=== PATIENT | female | born 1955 | race Caucasian/White ===

== ENCOUNTER 2019-12-08 16:52 | Outpatient (CLI) | payer OTHER, SELFPAY ==
--- NOTE | ~2019-12-08 | XR_ITS ---
XR foot RT 2V 12/08/2019 17:26 Indication: Right foot pain Procedure: 2 views right foot Comparison: 06/29/2013 Findings: There is mild osteoarthritis of the first MTP joint. Lisfranc joint intact. Small degenerat anju calcaneal enthesophyte. There are degenerative changes of the midfoot. Osteopenia. No erosive emilia nges are identified. 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 Reviewed, dictated and finalized at location A. 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
[2019-12-08 17:17] LABS: Basophils Absolute Auto 0.1 K/mm3 (0.0-0.1); Basophils Percent Auto 1.1 % (0.2-1.2); Eosinophils Absolute Auto 0.2 K/mm3 (0-0.3); Eosinophils Percent Auto 2.6 % (0-4.4); Hematocrit 43.2 % (37.0-47.0); Hemoglobin 13.9 g/dL (12.0-15.0); Immature Granulocyte Absolute 0.02 K/mm3 (0.00-0.031); Immature Granulocyte Percent A 0.3 % (0-0.5); Lymphocytes Absolute Auto 1.68 K/mm3 (0.9-3.2); Lymphocytes Percent Auto 25.5 % (18.3-44.2); Mean Corpuscular HGB Conc 32.2 g/dl (32-36); Mean Corpuscular Hemoglobin 27.7 pg (26-34); Mean Corpuscular Volume 86.2 fl (80-100); Mean Platelet Volume 10.6 fl (7.4-10.4); Monocytes Absolute Auto 0.4 K/mm3 (0.1-0.6); Monocytes Percent Auto 6.7 % (2.6-8.5); Neutrophils Absolute Auto 4.2 K/mm3 (1.3-6.7); Neutrophils Percent Auto 63.8 % (45.5-73.1); Platelet Count Result 236 k/mm3 (150-375); Red Blood Count 5.01 M/mm3 (4.2-5.4); Red Cell Distribution Width 13.7 % (11.5-14.5); White Blood Count 6.6 K/mm3 (4.5-10.0)
[2019-12-08 17:29] LABS: Alanine Aminotransferase 6 U/L (4-35); Albumin Level 4.6 g/dL (3.5-5.1); Alkaline Phosphatase 88 U/L (38-126); Aspartate Amino Transferase 23 U/L (14-36); Bilirubin,Total 0.5 mg/dL (0.2-1.3); Blood Urea Nitrogen 18 mg/dL (7-17); Calcium 9.6 mg/dL (8.4-10.2); Carbon Dioxide 27 mmol/L (22-30); Chloride 104 mmol/L (98-107); Cholesterol 236 mg/dL (0-200); Estimated Glomerular Filt Rate > 60; Glucose 91 mg/dL (65-105); HDL Direct 62 mg/dL; Potassium 4.6 mmol/L (3.4-5.0); Sodium 138 mmol/L (137-145); Triglycerides 265 mg/dL (<150)
[2019-12-08 17:40] LABS: LDL Cholesterol Direct 136 mg/dL
[2019-12-08 18:09] LABS: Free T4 Free Thyroxine 1.44 ng/mL (0.78-2.19)
== END 2019-12-08 16:53 | disposition home or self-care (01) ==
PROVIDERS: PCP Family Medicine; Visit Provider Nurse Practitioner Family
DX: E78.5 Hyperlipidemia, unspecified (principal); I10 Essential (primary) hypertension; E03.9 Hypothyroidism, unspecified; M19.071 Primary osteoarthritis, right ankle and foot
CPT/HCPCS: 36415; 73620; 80053; 80061; 84439; 84443; 85025

== ENCOUNTER 2020-01-04 14:54 | Outpatient (CLI) | payer OTHER, SELFPAY ==
--- NOTE | ~2020-01-04 | MM_ITS ---
EXAMINATION: MM screening mammo BI HISTORY: Screening TECHNIQUE: Craniocaudal and mediolateral oblique 3-D tomosynthesis images were obtained and synthetic 2-D images were generated. CAD analysis was submitted and interpreted. COMPARISON: 02/16/2014 BREAST PARENCHYMAL COMPOSITION: There are scattered areas of fibroglandular density. FINDINGS: There is no evidence of suspicious mass, calcification, or architectural distortion to sugg est malignancy in either breast. There has been no suspicious interval change. IMPRESSION: 1. No mammographic evidence of malignancy. 2. Recommend routine screening mammography in one year. BI-RADS Category 1: Negative Reviewed, dictated and finalized at location A.
--- NOTE | ~2020-01-04 | DEXA_ITS ---
Bone Density Report Name: Yamileth Brunner Age: 64 Sex: Female Ethnicity: White Date of : 1955 Indication: postmenopausal; prior fracture; Referring Provider: Elis Roldan Study: Bone densitometry was performed. Exam Date: January 04, 2020 Accession number: [id number] Bone Density: Region BMD T-score Z-score Classification AP Spine (L1, L2) 1.030 0.5 2.0 Normal Femoral Neck (Left) 0.817 -0.3 1.1 Normal Total Hip (Left) 1.037 0.8 1.9 Normal Total Hip Bilateral Avg 1.008 0.6 1.7 Normal Femoral Neck (Right) 0.744 -1.0 0.5 Normal Total Hip (Right) 0.978 0.3 1.4 Normal World Health Organization criteria for BMD impression classify patients as: Normal (T-score at or above -1.0), Osteopenia (T-score between -1.0 and -2.5), or Osteoporosis (T-score at or below -2.5). 10-year Fracture Risk: FRAX not reported because: All T-scores for Spine Total, Hip Total, Femoral Neck at or above -1.0 Clinical Information Provided by Patient: Has had a low trauma fracture Patient maximum height was 65 Menopause Age: 53 Drinks caffeinated beverages Onset of menses at age 14 Number of children 2 Impression: The patient has normal bone mass. The patient has risk factors, including: previous fracture. Discussion: BONE DENSITY IS ABOVE THE MINIMUM DESIRABLE LEVEL AT ALL SKELETAL SITES TESTED. This patient?s bone mineral density is above the minimum desirable level (T-score -1.0 or better) at all sites measured. The patient should follow a healthful lifestyle (good nutrition with adequate calcium and vitamin D, and appropriate weight-bearing exercise). Follow-Up: Consider repeating this study in 5 years or sooner if there is some new clinical indication. Reported by: WILTON on 01/04/2020 3:31:00 PM. Reviewed, dictated and finalized at location ASujata WHEELER
== END 2020-01-04 14:55 | disposition home or self-care (01) ==
LOC: ANHIMG 14:55
PROVIDERS: PCP Family Medicine; Visit Provider Nurse Practitioner Family
DX: Z12.31 Encounter for screening mammogram for malignant neoplasm of breast (principal); Z13.820 Encounter for screening for osteoporosis
CPT/HCPCS: 77067; 77080

== ENCOUNTER 2021-11-22 09:47 | Outpatient (CLI) | payer OTHER, SELFPAY ==
[2021-11-22 11:53] LABS: Hematocrit 44.4 % (37.0-47.0); Hemoglobin 14.2 g/dL (12.0-15.0); Mean Corpuscular Hemoglobin 27.4 pg (26-34); Mean Corpuscular Volume 85.5 fl (80-100); Platelet Count Result 228 k/mm3 (150-375); Red Blood Count 5.19 M/mm3 (4.2-5.4); Red Cell Distribution Width 13.1 % (11.5-14.5); White Blood Count 6.4 K/mm3 (4.5-10.0)
[2021-11-22 12:07] LABS: Albumin Level 4.4 g/dL (3.5-5.1); Alkaline Phosphatase 94 U/L (38-126); Anion Gap 7 mmol/L (8-16); Aspartate Amino Transferase 18 U/L (14-36); Bilirubin,Total 0.4 mg/dL (0.2-1.3); Blood Urea Nitrogen 16 mg/dL (7-17); Calcium 8.9 mg/dL (8.4-10.2); Carbon Dioxide 26 mmol/L (22-30); Chloride 107 mmol/L (98-107); Cholesterol 235 mg/dL (0-200); Estimated Glomerular Filt Rate 56; Glucose 94 mg/dL (65-110); HDL Direct 56 mg/dL; Potassium 4.1 mmol/L (3.4-5.0); Sodium 140 mmol/L (137-145); Triglycerides 196 mg/dL (<150)
[2021-11-22 12:19] LABS: LDL Cholesterol Direct 131 mg/dL
[2021-11-22 22:22] LABS: Alanine Aminotransferase 6 U/L (6-35)
== END 2021-11-22 09:48 | disposition home or self-care (01) ==
PROVIDERS: PCP Family Medicine; Visit Provider Nurse Practitioner Family
DX: M79.671 Pain in right foot (principal); E78.5 Hyperlipidemia, unspecified; E03.9 Hypothyroidism, unspecified
CPT/HCPCS: 36415; 80053; 80061; 84436; 84443; 85027

== ENCOUNTER 2022-03-05 11:57 | Outpatient (CLI) | payer MEDICARE, OTHER, SELFPAY ==
--- NOTE | ~2022-03-05 | MM_ITS ---
EXAMINATION: MM screening [facility] BI w [facility] HISTORY: Screening mammogram TECHNIQUE: Craniocaudal and mediolateral oblique 3-D tomosynthesis images were obtained and synthetic 2-D images were generated. CAD analysis was submitted and interpreted. COMPARISON: 01/04/2020, 02/16/2014, 01/01/2012 BREAST PARENCHYMAL COMPOSITION: There are scattered areas of fibroglandular density. FINDINGS: RIGHT BREAST: There is a possible solitary dilated duct in the upper outer quadrant of the breast. LEFT BREAST: No suspicious mass, calcification, or architectural distortion are identified to suggest malignancy. There has been no suspicious interval change. IMPRESSION: 1. Possible solitary dilated duct of the right breast. 2. Additional mammographic views and possible breast ultrasound are recommended. BI-RADS Category 0: Incomplete: Needs additional imaging evaluation. Reviewed, dictated and finalized at location A. IMPRESSION: 1. Possible solitary dilated duct of the right breast. 2. Additional mammographic views and possible breast ultrasound are recommended . BI-RADS Category 0: Incomplete: Needs additional imaging evaluation.
== END 2022-03-05 11:58 | disposition home or self-care (01) ==
PROVIDERS: PCP Family Medicine; Visit Provider Nurse Practitioner Family
DX: Z12.31 Encounter for screening mammogram for malignant neoplasm of breast (principal); R92.8 Other abnormal and inconclusive findings on diagnostic imaging of breast
CPT/HCPCS: 77063; 77067

== ENCOUNTER 2022-03-17 11:18 | Outpatient (CLI) | payer MEDICARE, OTHER, SELFPAY ==
--- NOTE | ~2022-03-17 | MM_ITS ---
EXAMINATION: MM diagnostic iván RT w [facility] HISTORY: Possible dilated right breast duct. TECHNIQUE: Additional 3-D tomosynthesis images of the right breast were performed and synthetic 2-D i mages were generated. CAD analysis was submitted and interpreted. COMPARISON: Comparison to multiple prior studies sequentially, with oldest reviewed study dated 02/16. BREAST PARENCHYMAL COMPOSITION: Breast composed of scattered areas of fibroglandular density FINDINGS: There are no suspicious masses, calcifications or architectural distortion in the right patricia ast to suggest malignancy. Interval resolution of tubular structure in the upper outer quadrant seen on recent screening mammogram. IMPRESSION: 1. No evidence for malignancy in the right breast. 2. Routine yearly screening mammogram and regular clinical breast examination are recommended. BI-RADS Category 1: Negative Reviewed, dictated and finalized at location A. IMPRESSION: 1. No evidence for malignancy in the right breast. 2. Routine yearly screening mammogram and regular clinical breast examination a re recommended. BI-RADS Category 1: Negative
== END 2022-03-17 11:19 | disposition home or self-care (01) ==
LOC: ANHIMG 11:19
PROVIDERS: PCP Family Medicine; Visit Provider Nurse Practitioner Family
DX: R92.8 Other abnormal and inconclusive findings on diagnostic imaging of breast (principal)
CPT/HCPCS: 77061; 77065; G0279

== ENCOUNTER 2023-02-10 09:36 | Outpatient (CLI) | payer MEDICARE, OTHER, SELFPAY ==
[2023-02-10 10:20] LABS: Hematocrit 44.8 % (37.0-47.0); Hemoglobin 14.3 g/dL (12.0-15.0); Mean Corpuscular HGB Conc 31.9 g/dl (32-36); Mean Corpuscular Volume 87.7 fl (80-100); Mean Platelet Volume 10.5 fl (7.4-10.4); Platelet Count Result 206 k/mm3 (150-375); Red Blood Count 5.11 M/mm3 (4.2-5.4); Red Cell Distribution Width 13.1 % (11.5-14.5); White Blood Count 5.7 K/mm3 (4.5-10.0)
[2023-02-10 10:31] LABS: Alanine Aminotransferase 8 U/L (6-35); Albumin Level 4.4 g/dL (3.5-5.1); Alkaline Phosphatase 81 U/L (38-126); Anion Gap 7 mmol/L (8-16); Aspartate Amino Transferase 24 U/L (14-36); Bilirubin,Total 0.8 mg/dL (0.2-1.3); Blood Urea Nitrogen 15 mg/dL (7-17); Calcium 9.1 mg/dL (8.4-10.2); Carbon Dioxide 27 mmol/L (22-30); Chloride 105 mmol/L (98-107); Cholesterol 231 mg/dL (0-200); Estimated Glomerular Filt Rate > 60; Glucose 101 mg/dL (65-110); HDL Direct 53 mg/dL; Potassium 4.5 mmol/L (3.4-5.0); Sodium 139 mmol/L (137-145); Triglycerides 212 mg/dL (<150)
[2023-02-10 10:44] LABS: LDL Cholesterol Direct 137 mg/dL
[2023-02-10 11:03] LABS: Thyroid Stimulating Hormone 0.388 uIU/mL (0.465-4.680)
[2023-02-10 11:24] LABS: Vitamin D 25 Hydroxy 30.2 ng/mL
== END 2023-02-10 09:37 | disposition home or self-care (01) ==
PROVIDERS: PCP Family Medicine; Visit Provider Nurse Practitioner Family
DX: M79.671 Pain in right foot (principal); I10 Essential (primary) hypertension; E78.5 Hyperlipidemia, unspecified; E03.9 Hypothyroidism, unspecified; E55.9 Vitamin D deficiency, unspecified
CPT/HCPCS: 36415; 80053; 80061; 82306; 84436; 84443; 85027

== ENCOUNTER 2023-02-12 12:48 | Outpatient (CLI) | payer MEDICARE, OTHER, SELFPAY ==
--- NOTE | 2023-02-12 13:42 | ECG_ITS ---
Measurements Intervals [place] Rate: 69 P: 130 IN: 107 QRS: 4 QRSD: 78 T: 51 QT: 332 QTc: 357 Interpretive Statements SINUS RHYTHM WITH SHORT IN INTERVAL FREQUENT ATRIAL PREMATURE COMPLEXES LOW QRS VOLTAGE IN PRECORDIAL LEADS BORDERLINE ST-T WAVE ABNORMALITY- DIFFUSE LEADS BASELINE ARTIFACT- I, II, AVR, AVL, AVF ABNORMAL ECG NO PREVIOUS ECG AVAILABLE FOR COMPARISON Electronically Signed On 02-12-2023 13:52:55 CDT by Tad Craven D.O.
== END 2023-02-12 12:49 | disposition home or self-care (01) ==
PROVIDERS: PCP Family Medicine; Visit Provider Nurse Practitioner Family
DX: R07.89 Other chest pain (principal); I47.1 Supraventricular tachycardia; R94.31 Abnormal electrocardiogram [ECG] [EKG]
CPT/HCPCS: 93005

== ENCOUNTER 2023-02-18 10:44 | Outpatient (CLI) | payer MEDICARE, OTHER, SELFPAY ==
--- NOTE | 2023-02-19 14:30 | WPDHOLTEREM ---
Holter/Event Monitor Holter/Event Monitor Date of procedure: 02/18/23 Holter/Event Procedure: 24 Hr Holter Monitor Indications: SVT Conclusion: 1. 24 hour holter monitor on 02/18/23. 2. Predominant rhythm is sinus rhythm. HR range 46-115 bpm; average HR 70 bpm. HR at 46 bpm is at 09:44. 3. There are 1,675 premature supraventricular complexes, 23 supraventricular couplets, 16 supraventricular bigeminy, 93 supraventricular trigeminy. There are 2 episodes of atrial tachycardia, fastest at 126 bpm and longest lasting 5 beats. 4. There are 67 premature ventricular complexes. No ventricular tachycardia. 5. No sinoatrial or atrioventricular blocks. No significant pauses greater than 2 seconds. 6. Patient reports symptoms of shortness of breath, lightheadedness, chest pressure which demonstrate sinus rhythm, HR range 63-109 bpm with 3 episodes with PAC's.
== END 2023-02-18 10:45 | disposition home or self-care (01) ==
LOC: ANHCARD 10:45
PROVIDERS: PCP Family Medicine; Visit Provider Nurse Practitioner Family
DX: I47.1 Supraventricular tachycardia (principal); R07.89 Other chest pain; R94.31 Abnormal electrocardiogram [ECG] [EKG]
CPT/HCPCS: 93225; 93226

== ENCOUNTER 2023-03-31 08:34 | Outpatient (CLI) | payer MEDICARE, OTHER, SELFPAY ==
--- NOTE | 2023-03-31 | EST_ITS ---
Patient Info Name: Yamileth Brunner Age: 67 years : 1955 Gender: Female Ht: 65 in Wt: 237 lbs BSA: 2.27 m2 Exam Date: 03/31/2023 9:35 AM Exam Location: [facility] Stress Patient Status: Outpatient Admit Date: 03/31/2023 Staff Ordering Physician: Geovanna Chaudhari MD Attending Provider: Geovanna Chaudhari MD Exercise Technologist: Georgia Thompson, CT Nurse: Sheela Kimble APN Exam Type: CA stress leslie w NM Study Info Indications R07.9 - Chest pain, unspecified A nuclear stress test was performed. Summary 1. Target heart rate was not achieved during exercise stress test. 2. Exercise capacity fair to good at 6-10 METS. 3. Hypertensive blood pressure response to exercise. 4. The stress ECG is non-diagnostic due to significant baseline artifact during exercise that limits interpretation for STTW changes. 5. Occasional PVCs. 6. Please correlate with nuclear medicine images, reported separately. 7. Stress test supervised by Sheela Kimble NP. Stress test interpreted by Caitlyn Millan MD. Protocol: [facility] Stress ECG Details Stage: REST Duration (min): 4 min : 41 sec Speed (mph): 0.0 Grade (%): 0 HR (bpm): 78 SBP (mmHg): 160 DBP (mmHg): 96 METS: --- Stage: REST Duration (min): 15 min : 1 sec Speed (mph): 0.0 Grade (%): 0 HR (bpm): 89 SBP (mmHg): 160 DBP (mmHg): 96 METS: --- Stage: STAGE 1 Duration (min): 1 min : 0 sec Speed (mph): 1.7 Grade (%): 10 HR (bpm): 96 SBP (mmHg): 160 DBP (mmHg): 96 METS: --- Stage: STAGE 1 Duration (min): 2 min : 0 sec Speed (mph): 1.7 Grade (%): 10 HR (bpm): 104 SBP (mmHg): 160 DBP (mmHg): 96 METS: --- Stage: STAGE 1 Duration (min): 3 min : 0 sec Speed (mph): 1.7 Grade (%): 10 HR (bpm): 111 SBP (mmHg): 210 DBP (mmHg): 94 METS: --- Stage: STAGE 2 Duration (min): 1 min : 0 sec Speed (mph): 2.5 Grade (%): 12 HR (bpm): 75 SBP (mmHg): 210 DBP (mmHg): 94 METS: --- Stage: STAGE 2 Duration (min): 1 min : 10 sec Speed (mph): 2.5 Grade (%): 12 HR (bpm): 82 SBP (mmHg): 210 DBP (mmHg): 94 METS: --- Stage: RECOVERY Duration (min): 0 min : 49 sec Speed (mph): 0.0 Grade (%): 0 HR (bpm): 118 SBP (mmHg): 210 DBP (mmHg): 94 METS: --- Stage: RECOVERY Duration (min): 1 min : 49 sec Speed (mph): 0.0 Grade (%): 0 HR (bpm): 104 SBP (mmHg): 156 DBP (mmHg): 83 METS: --- Stage: RECOVERY Duration (min): 2 min : 49 sec Speed (mph): 0.0 Grade (%): 0 HR (bpm): 95 SBP (mmHg): 156 DBP (mmHg): 83 METS: --- Stage: RECOVERY Duration (min): 3 min : 49 sec Speed (mph): 0.0 Grade (%): 0 HR (bpm): 93 SBP (mmHg): 170 DBP (mmHg): 94 METS: --- Stage: RECOVERY Duration (min): 4 min : 5 sec Speed (mph): 0.0 Grade (%): 0 HR (bpm): 93 SBP (mmHg): 170 DBP (mmHg): 94 METS: --- Rest HR: 89 bpm Peak HR: 119 bpm Rest Sys BP: 160 mmHg Peak Sys BP: 210 mmHg Max Pred HR: 154 bpm % Max Pred HR
--- NOTE | ~2023-03-31 | NM_ITS ---
EXAMINATION: NM stress w perf spect multi DATE: 03/31/2023 11:04 INDICATION: Other chest pain. TECHNIQUE: Rest images were obtained following intravenous administration of 9.2 mCi Tc99m tetrofosmi n (NexPlanar). The patient performed an exercise activity. At peak exercise, 28.6 mCi Tc99m tetrofosmin (Myoview) was administered intravenously, and stress images were obtained. Data was reconstructed in to short axis and horizontal and vertical long axis SPECT images. Gated SPECT images were also obtain ed. COMPARISON: None. FINDINGS: There is no definite reversible or fixed perfusion abnormality to suggest ischemia or infar ction. There is no segmental wall motion abnormality. Left ventricular ejection fraction measures > 70%. IMPRESSION: 1. No definite ischemia or infarct. 2. Normal left ventricular ejection fraction measuring >70%. Reviewed, dictated and finalized at location E.
== END 2023-03-31 08:35 | disposition home or self-care (01) ==
PROVIDERS: PCP Family Medicine; Visit Provider Internal Medicine Cardiovascular Disease
DX: R07.89 Other chest pain (principal); R94.39 Abnormal result of other cardiovascular function study
CPT/HCPCS: 78452; 93017; A9502

== ENCOUNTER 2023-06-12 08:35 | Outpatient (CLI) | payer MEDICARE, OTHER, SELFPAY ==
--- NOTE | ~2023-06-12 | MM_ITS ---
EXAMINATION: MM screening [facility] BI w [facility] HISTORY: Screening mammogram TECHNIQUE: Craniocaudal and mediolateral oblique 3-D tomosynthesis images were obtained and synthetic 2-D images were generated. CAD analysis was submitted and interpreted. COMPARISON: 03/17/2022, 03/05/2022, 01/24/2020 BREAST PARENCHYMAL COMPOSITION: There are scattered areas of fibroglandular density. FINDINGS: No suspicious mass, calcification, or architectural distortion are identified in either patricia ast to suggest malignancy. There has been no suspicious interval change. IMPRESSION: 1. No mammographic evidence of malignancy. 2. Recommend routine screening mammography in one year. BI-RADS Category 1: Negative Reviewed, dictated and finalized at location A. MOVER
== END 2023-06-12 08:36 | disposition home or self-care (01) ==
LOC: ANHIMG 08:39
PROVIDERS: PCP Family Medicine; Visit Provider Family Medicine
DX: Z12.31 Encounter for screening mammogram for malignant neoplasm of breast (principal)
CPT/HCPCS: 77063; 77067

== ENCOUNTER 2024-05-06 09:58 | Outpatient (CLI) | payer MEDICARE, OTHER, SELFPAY ==
[2024-05-06 11:01] LABS: Basophils Absolute Auto 0.1 K/mm3 (0.0-0.1); Basophils Percent Auto 1.1 % (0.2-1.2); Eosinophils Absolute Auto 0.1 K/mm3 (0-0.3); Eosinophils Percent Auto 2.8 % (0-4.4); Hemoglobin 14.1 g/dL (12.0-15.0); Immature Granulocyte Absolute 0.03 K/mm3 (0.00-0.031); Immature Granulocyte Percent A 0.6 % (0-0.5); Lymphocytes Absolute Auto 1.42 K/mm3 (0.9-3.2); Lymphocytes Percent Auto 30.6 % (18.3-44.2); Mean Corpuscular HGB Conc 32.8 g/dl (32-36); Mean Corpuscular Hemoglobin 28.7 pg (26-34); Mean Corpuscular Volume 87.4 fl (80-100); Mean Platelet Volume 10.4 fl (7.4-10.4); Monocytes Absolute Auto 0.4 K/mm3 (0.1-0.6); Monocytes Percent Auto 8.6 % (2.6-8.5); Neutrophils Absolute Auto 2.6 K/mm3 (1.3-6.7); Neutrophils Percent Auto 56.3 % (45.5-73.1); Platelet Count Result 187 k/mm3 (150-375); Red Blood Count 4.92 M/mm3 (4.2-5.4); White Blood Count 4.6 K/mm3 (4.5-10.0)
[2024-05-06 11:16] LABS: Albumin Level 4.3 g/dL (3.5-5.1); Alkaline Phosphatase 81 U/L (38-126); Anion Gap 5 mmol/L (4-12); Aspartate Amino Transferase 29 U/L (14-36); Bilirubin,Total 0.8 mg/dL (0.2-1.3); Blood Urea Nitrogen 15 mg/dL (7-17); Calcium 9.2 mg/dL (8.4-10.2); Carbon Dioxide 29 mmol/L (22-30); Chloride 104 mmol/L (98-107); Cholesterol 168 mg/dL (0-200); Estimated Glomerular Filt Rate > 60; Glucose 100 mg/dL (65-110); HDL Direct 61 mg/dL; Potassium 4.3 mmol/L (3.4-5.0); Sodium 138 mmol/L (137-145); Triglycerides 148 mg/dL (<150)
[2024-05-06 11:27] LABS: Alanine Aminotransferase < 6 U/L (6-35); LDL Cholesterol Direct 74 mg/dL
[2024-05-06 11:42] LABS: Free T4 Free Thyroxine 1.35 ng/dL (0.78-2.19); Vitamin D 25 Hydroxy 37.9 ng/mL
[2024-05-06 12:20] LABS: Folic Acid > 20.0 ng/mL (2.76->20)
== END 2024-05-06 09:59 | disposition home or self-care (01) ==
PROVIDERS: PCP Family Medicine; Visit Provider Nurse Practitioner Adult Health
DX: E55.9 Vitamin D deficiency, unspecified (principal); I10 Essential (primary) hypertension; E03.9 Hypothyroidism, unspecified; G20.B1 Parkinson's disease with dyskinesia, without mention of fluctuations; R42 Dizziness and giddiness; E78.5 Hyperlipidemia, unspecified; E78.00 Pure hypercholesterolemia, unspecified
CPT/HCPCS: 36415; 80053; 80061; 82306; 82607; 82746; 84439; 84443; 85025

== ENCOUNTER 2024-05-18 11:12 | Outpatient (CLI) | payer MEDICARE, OTHER, SELFPAY ==
[2024-05-18 12:06] LABS: Iron 72 ug/dL (37-170)
[2024-05-18 12:15] LABS: Percent Iron Saturation 26 % (20-50)
[2024-05-19 17:53] LABS: Red Blood Cell Folate 613 ng/mL RBC (>280)
== END 2024-05-18 11:13 | disposition home or self-care (01) ==
PROVIDERS: PCP Family Medicine; Visit Provider Nurse Practitioner Adult Health
DX: D64.9 Anemia, unspecified (principal); K90.89 Other intestinal malabsorption
CPT/HCPCS: 36415; 82747; 83540; 83550

== ENCOUNTER 2025-01-16 11:00 | Outpatient (RCR) | payer MEDICARE, OTHER, SELFPAY ==
--- NOTE | 2024-12-07 11:48 | OPREHPOC ---
Outpatient Therapy Plan of Care This is a Multidisciplinary Plan of Care that may contain components documented by all disciplines (PT, OT, and ST.) PT Problem 1 PT Problem #1 Knowledge Deficit PT Goal 1 Goal / Goal Update *independent with HEP Target Visit 10 PT Problem 2 PT Problem #2 Impaired Strength PT Goal 1 Goal / Goal Update increase LE strength to improve gait, transfer and mobility skills: 1* R LE gross 4/5 2* L LE gross 4+/5 3* pt ambulate with good heel strike R with 2 minute walking test 4* pt ambulate with R hip in neutral/ no ER with 2 minute walking test Target Visit 10 PT Problem 3 PT Problem #3 Impaired Balance PT Goal 1 Goal / Goal Update improve balance for mobility safety 1* Davila balance score of 56/56 2* pt report she does not have any imbalance with walking Target Visit 10 PT Problem 4 PT Problem #4 Impaired Functional Mobility PT Goal 1 Goal / Goal Update 1* 2 minute walking test distance of 450', to improve speed with walking and community outings with her grand daughter 2* on 12 steps, with one hand railing, pt have good control of LE's Target Visit 10
--- NOTE | 2024-12-07 11:48 | PTOPEVAL1 ---
Assessment and note entered by Teresa Herrmann PT Evaluation Information Assessment Status Evaluation ICD-10 Condition Codes (PT) Difficulty Walking R26.2,Abnormalities of gait and mobility R26.9,Weakness R53.1 Other ICD-10 Condition Codes ( Parkinson's G20.A1 PT) Onset September 2024 Subjective Information gradual increase in Parkinson's symptoms- hips and trunk more flexed, more muscle spasms; no falls in the past 6 months; feel like do not have any energy; have cane, use PRN; doing OK on the steps at home - some days do one step at time; have varying symptoms from day/day; feel like R side is weaker than L; activity: retired PT, 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 She has not had any falls, but has decreased balance and uses a cane PRN. She is a retired PT, is motivated and understands the importance of exercise for her Parkinson's. She attends [employer] 2x/week and walks as able. LE functional scale rating of 64% limitation in activity level. She also has orthostatic hypotension, and is aware of her symptoms and sits/rests to manage it. With the evaluation: she has resting tremors of R UE and LE; weakness of both R and L LE, R more weakness; single leg standing on R is 1 and L is 4 seconds, unstable; poor position of R ankle with eversion and abduction of forefoot in standing; Davila balance score of 50/56; 2 minute walking test distance of 365'; Skilled PT services are indicated to increase LE strength, gait pattern, balance and mobility skills, with education for HEP and gait pattern. Plan of Care Interventions Gait Training,Neuro Re-education,Patient/Caregiver Education,Therapeutic Activities,Therapeutic Exercise PT Services Indicated Yes Treatment Frequency and 1-2x/wk for 10 visits Duration These treatments will address the objective and functional deficits as defined above. The patient will be advanced safely and appropriately in order for the patient to progress towards his/her prior level of function. Additional exercises will be introduced and as well as a comprehensive home exercise program upon discharge, if needed, ?to ensure carryover of functional gains achieved in the clinic. This treatment plan has been reviewed and agreement upon by the patient.
--- NOTE | 2025-01-16 11:50 | OPREHPOC ---
Outpatient Therapy Plan of Care This is a Multidisciplinary Plan of Care that may contain components documented by all disciplines (PT, OT, and ST.) PT Problem 1 PT Problem #1 Knowledge Deficit PT Goal 1 Goal / Goal Update *independent with HEP 01-16-25 d/c goals met Target Visit 10 Progress Met PT Problem 2 PT Problem #2 Impaired Strength PT Goal 1 Goal / Goal Update increase LE strength to improve gait, transfer and mobility skills: 1* R LE gross 4/5 2* L LE gross 4+/5 3* pt ambulate with good heel strike R with 2 minute walking test 4* pt ambulate with R hip in neutral/ no ER with 2 minute walking test 01-16-25 d/c goals 1,2 met Target Visit 10 Progress Partially Met PT Problem 3 PT Problem #3 Impaired Balance PT Goal 1 Goal / Goal Update improve balance for mobility safety 1* Davila balance score of 56/56 2* pt report she does not have any imbalance with walking 01-16-25 d/c goals not met; #1 52/56; #2- have imbalance Target Visit 10 Progress Not Met PT Problem 4 PT Problem #4 Impaired Functional Mobility PT Goal 1 Goal / Goal Update 1* 2 minute walking test distance of 450', to improve speed with walking and community outings with her grand daughter 2* on 12 steps, with one hand railing, pt have good control of LE's 01-16-25 d/c goal 2 met; #1 is 320' Target Visit 10 Progress Partially Met
--- NOTE | 2025-01-16 11:50 | PTOPDC ---
Assessment and note entered by Teresa Herrmann, PT Discharge report Assessment Status Discharge ICD-10 Condition Codes (PT) Difficulty Walking R26.2,Abnormalities of gait and mobility R26.9,Weakness R53.1 Other ICD-10 Condition Codes ( Parkinson's G20.A1 PT) Onset September 2024 Subjective Information doing better since coming for therapy--bigger steps with walking and balance is better; feel like R hip is stronger and does not give out on the stairs; been doing the exercises without any problems; every day my balance and abilities vary; doing ok getting around at home, some days walking is better than other days; continue to do the boxing class; still having problems with the orthostatic hypotension. At home, do about 5-10 minutes of activity, then have to sit and rest. Ready to be finished with therapy. Reported Pain Level Pain Score 0: Self Report Assessment PT Clinical Summary Yamileth has received 10 PT sessions. With today's assessment: self assessment with LE functional scale rating of 60% limitation in activity level; 2 minute walking test distance of 320'; gait pattern with R flat foot, R ankle eversion, decreased arm swing and R hip ER; on stairs, uses one hand railing and alternating step pattern; gross strength of R LE 4/5 and L 4+/5; education for gait pattern and HEP completed. She continues to have issues with dizziness, hypotension and variations in ability from day to day. The heat has had a negative effect on her. The goals were partially met. Discharge PT services. She is to continue with her HEP and boxing program. Plan of Care PT Services Indicated No
== END 2025-01-16 12:13 | disposition home or self-care (01) ==
LOC: ANHPT 11:00
PROVIDERS: PCP Family Medicine
DX: G20.A1 Parkinson's disease without dyskinesia, without mention of fluctuations (principal); R26.2 Difficulty in walking, not elsewhere classified; R26.9 Unspecified abnormalities of gait and mobility; R53.1 Weakness
CPT/HCPCS: 97110; 97112; 97116; 97140; 97161; 97530